=== PATIENT | female | born 1945 | race Caucasian/White ===

== ENCOUNTER → 2017-11-26 | Outpatient (CLI) | payer MEDICARE ==
[~2017-11-26] MED LIST: ASPI81CH PO; CHOL10002; LEVSOD50 PO; Lisinopril2.5 MG; METO50ER PO; Norco 5-325 Ta1 EACH PO; POTCHL10ER PO; SIMV40 PO; TRIHYD253A PO
== END ==
LOC: PLD 08:08 → LAB SHORT 08:08
DX: D22.5 Melanocytic nevi of trunk (principal)
CPT/HCPCS: 88305

== ENCOUNTER → 2019-02-23 | Outpatient (CLI) | payer MEDICARE ==
[2019-02-23 17:17] LABS: Protein, Urine Random 12.6 mg/dL (0.0-11.9)
== END | disposition home or self-care (01) ==
LOC: LAB SHORT 14:45 → LAB 14:45 → LAB FUT 05-18 08:30
PROVIDERS: Internal Medicine
DX: I12.9 Hypertensive chronic kidney disease with stage 1 through stage 4 chronic kidney disease, or unspecified chronic kidney disease (principal); N18.3 Chronic kidney disease, stage 3 (moderate); E78.5 Hyperlipidemia, unspecified
CPT/HCPCS: 82570; 84156

== ENCOUNTER → 2021-04-23 | Outpatient (CLI) | payer MEDICARE | END | disposition home or self-care (01) | LOC: LAB 17:55 → LAB SHORT 17:55 | DX: R35.0 Frequency of micturition (principal) | CPT/HCPCS: 87077; 87086; 87186 ==

== ENCOUNTER → 2022-05-07 | Outpatient (CLI) | payer MEDICARE | END | disposition home or self-care (01) | LOC: LAB SHORT 12:10 → PLD 12:10 | DX: C44.41 Basal cell carcinoma of skin of scalp and neck (principal) | CPT/HCPCS: 88305 ==

== ENCOUNTER → 2022-05-29 | Outpatient (CLI) | payer MEDICARE | END | disposition home or self-care (01) | LOC: LAB SHORT 15:01 → LAB 15:01 → PLD 15:01 | DX: C44.41 Basal cell carcinoma of skin of scalp and neck (principal) | CPT/HCPCS: 88305 ==

== ENCOUNTER → 2023-04-30 | Outpatient (CLI) | payer MEDICARE | END | disposition home or self-care (01) | LOC: LAB SHORT 11:43 → PLD 11:43 → LAB 11:43 | DX: D48.5 Neoplasm of uncertain behavior of skin (principal); L82.1 Other seborrheic keratosis | CPT/HCPCS: 88305 ==

== ENCOUNTER 2023-10-31 10:26 | Emergency (ER) | payer MEDICARE ==
[~2023-10-31] VITALS: Ht 157.5 cm; Wt 87.1 kg
[2023-10-31 11:46] VITALS: BP 115/96
== END 2023-10-31 12:43 | disposition home or self-care (01) ==
LOC: ER 10:26
DX: T84.023A Instability of internal left knee prosthesis, initial encounter (principal); Y79.2 Prosthetic and other implants, materials and accessory orthopedic devices associated with adverse incidents; Z87.891 Personal history of nicotine dependence
CPT/HCPCS: 27550; 73562-LT; 99152; 99284-25; J2704; J7030

== ENCOUNTER 2023-11-04 17:49 | Emergency (ER) | payer MEDICARE ==
[~2023-11-04] VITALS: Ht 160 cm; Wt 87.1 kg
[2023-11-04 23:00] VITALS: BP 142/62
== END 2023-11-04 23:28 | disposition home or self-care (01) ==
LOC: ER 17:49
DX: T84.023A Instability of internal left knee prosthesis, initial encounter (principal); I10 Essential (primary) hypertension; E78.00 Pure hypercholesterolemia, unspecified; Z88.0 Allergy status to penicillin; Z88.8 Allergy status to other drugs, medicaments and biological substances; Z79.899 Other long term (current) drug therapy; Z79.82 Long term (current) use of aspirin; Z87.891 Personal history of nicotine dependence
CPT/HCPCS: 27550; 73562-LT; 99152; 99283-25; J2704; J7030

== ENCOUNTER → 2023-11-05 | Outpatient (CLI) | payer MEDICARE | LOC: LAB 14:38 → LAB SHORT 14:38 | DX: D04.39 Carcinoma in situ of skin of other parts of face (principal) | CPT/HCPCS: 88305 ==

== ENCOUNTER 2023-11-20 10:29 | Emergency (ER) | payer MEDICARE ==
[~2023-11-20] VITALS: Ht 160 cm; Wt 87.1 kg
[2023-11-20 12:45] VITALS: BP 151/71
== END 2023-11-20 13:14 | disposition home or self-care (01) ==
LOC: ER 10:29
DX: S83.122A Posterior subluxation of proximal end of tibia, left knee, initial encounter (principal); Z96.653 Presence of artificial knee joint, bilateral; Z96.643 Presence of artificial hip joint, bilateral; Z87.828 Personal history of other (healed) physical injury and trauma; I10 Essential (primary) hypertension; E78.5 Hyperlipidemia, unspecified; J45.909 Unspecified asthma, uncomplicated; Z87.891 Personal history of nicotine dependence; Z79.82 Long term (current) use of aspirin; Z79.899 Other long term (current) drug therapy; Z88.0 Allergy status to penicillin; Z88.8 Allergy status to other drugs, medicaments and biological substances; X50.9XXA Other and unspecified overexertion or strenuous movements or postures, initial encounter
CPT/HCPCS: 27550; 73560-LT; 73562-LT; 99284-25; J2704